=== PATIENT | female | born 1980 | race Caucasian/White ===

== ENCOUNTER 2025-08-19 08:47 | Outpatient (CLI) | payer OTHER ==
[2025-08-19] VITALS (21 sets, daily range): BP systolic 95–137; BP diastolic 41–83; PULSE 68–101
[~2025-08-19 08:47] MED LIST: SERT-153 PO; iud
== END 2025-08-19 23:59 | disposition home or self-care (01) ==
LOC: CARD DIAG 08:47
PROVIDERS: ATTEND Internal Medicine Interventional Cardiology
DX: R55 Syncope and collapse (principal)
CPT/HCPCS: 93660